=== PATIENT | male | born 1970 | race Caucasian/White ===

== ENCOUNTER 2016-07-31 14:23 | Emergency (ER) | payer MEDICARE ==
[~2016-07-31] VITALS: Ht 180.3 cm; Wt 93.0 kg
[2016-07-31 14:36] VITALS: BP 144/76
[2016-07-31] MEDS ORDERED: oxyCODONE/APAP (5/325 MG) 1 UDTAB TABLET PO ONE (15:00)
[2016-07-31] MEDS ORDERED: CLINDAMYCIN 900 MG/6 ML VIAL IM ONE (15:00)
[2016-07-31] MEDS ORDERED: IBUPROFEN 600 MG TABLET PO ONE ×2 (15:00→15:12)
[2016-07-31] MEDS ORDERED: CLINDAMYCIN 900 MG/6 ML VIAL ONE (15:12)
[2016-07-31] MEDS ORDERED: oxyCODONE/APAP (5/325 MG) 1 UDTAB TABLET ONE (15:12)
== END 2016-07-31 15:28 | disposition home or self-care (01) ==
LOC: ER 14:25
DX: K08.89 Other specified disorders of teeth and supporting structures (principal); K04.7 Periapical abscess without sinus; K02.9 Dental caries, unspecified; E78.00 Pure hypercholesterolemia, unspecified; I10 Essential (primary) hypertension
CPT/HCPCS: A4606; J3490; Z7610

== ENCOUNTER 2017-09-11 13:36 | Emergency (ER) | payer OTHER ==
[~2017-09-11] VITALS: Ht 180.3 cm; Wt 102.1 kg
[2017-09-11 13:43] VITALS: BP 168/114
[2017-09-11] MEDS ORDERED: SULFAMETH/TRIMETH 800/160 MG 1 UDTAB TABLET PO ONE ×2 (14:00→14:03)
[2017-09-11] MEDS ORDERED: predniSONE 20 MG TABLET PO ONE (14:00)
[2017-09-11] MEDS ORDERED: CEPHALEXIN MONOHYDRATE 500 MG CAPSULE PO ONE ×2 (14:00→14:02)
[2017-09-11] MEDS ORDERED: predniSONE 20 MG TABLET ONE (14:02)
--- NOTE | 2017-09-11 14:08 | NUR ---
Patient discharged to home in stable condition. Written and verbal after care instructions along with RX given. Patient verbalizes understanding of instruction. vss uppon discharge.
== END 2017-09-11 14:09 | disposition home or self-care (01) ==
LOC: ER 13:42
DX: R21 Rash and other nonspecific skin eruption (principal); E78.00 Pure hypercholesterolemia, unspecified; I10 Essential (primary) hypertension; Z98.890 Other specified postprocedural states
CPT/HCPCS: 99284; A4606; J7512; Z7610

== ENCOUNTER 2017-09-20 10:06 | Emergency (ER) | payer OTHER ==
[~2017-09-20] VITALS: Ht 177.8 cm; Wt 102.1 kg
[2017-09-20 10:13] VITALS: BP 170/100
== END 2017-09-20 11:12 | disposition home or self-care (01) ==
LOC: ER 10:11
DX: R21 Rash and other nonspecific skin eruption (principal); E78.00 Pure hypercholesterolemia, unspecified; I10 Essential (primary) hypertension; Z98.890 Other specified postprocedural states
CPT/HCPCS: A4606; Z7610